=== PATIENT | female | born 1970 | race American Indian/Alaskan Native ===

== ENCOUNTER 2016-09-28 21:21 | Emergency (ER) | payer OTHER ==
[~2016-09-28] VITALS: Ht 167.6 cm; Wt 52.2 kg
[~2016-09-28 21:21] MED LIST: ADDERALL XR 2020 MG PO; CEPHALEXIN500 MG PO; DOXYCYCLINE HY100 MG PO; HYDROXYZINE PAM25 MG PO; MELOXICAM15 MG PO; NORCO 5-325 TA1 EACH PO; PROGESTERONE100 MG PO; TIZANIDINE HCL4 MG PO; TRAMADOL HCL50 MG PO
[2016-09-28] MEDS ORDERED: ULTRAM50 MG PO (21:32)
[2016-09-28] MEDS ORDERED: TRAMADOL HCL50 MG PO (22:34)
== END 2016-09-28 22:45 | disposition home or self-care (01) ==
LOC: ED 21:21
DX: S30.0XXA Contusion of lower back and pelvis, initial encounter (principal); I10 Essential (primary) hypertension; F17.200 Nicotine dependence, unspecified, uncomplicated; Z98.51 Tubal ligation status; Z88.8 Allergy status to other drugs, medicaments and biological substances; Z79.899 Other long term (current) drug therapy; W18.30XA Fall on same level, unspecified, initial encounter
CPT/HCPCS: 71020; 72100; 73080; 99283

== ENCOUNTER 2016-10-15 10:21 | Emergency (ER) | payer OTHER ==
[~2016-10-15] VITALS: Ht 167.6 cm; Wt 52.2 kg
[~2016-10-15 10:21] MED LIST changes: +ULTRAM50 MG PO
[2016-10-15] MEDS ORDERED: CYCLOBENZAPRINE10 MG PO (12:13)
[2016-10-15] MEDS ORDERED: TYLENOL325 MG PO (12:13)
== END 2016-10-15 12:25 | disposition home or self-care (01) ==
LOC: ED 10:21
DX: K62.5 Hemorrhage of anus and rectum (principal); M54.5 Low back pain; R31.9 Hematuria, unspecified; I10 Essential (primary) hypertension; F17.200 Nicotine dependence, unspecified, uncomplicated; Z98.51 Tubal ligation status; Z88.6 Allergy status to analgesic agent; Z79.899 Other long term (current) drug therapy
CPT/HCPCS: 81001; 99283

== ENCOUNTER 2016-11-01 06:37 | Emergency (ER) | payer OTHER ==
[~2016-11-01] VITALS: Ht 167.6 cm; Wt 52.2 kg
[~2016-11-01 06:37] MED LIST changes: +CYCLOBENZAPRINE10 MG PO; +TYLENOL325 MG PO
[2016-11-01] MEDS ORDERED: ESCITALOPRAM OX10 MG PO (06:49)
== END 2016-11-01 08:48 | disposition home or self-care (01) ==
LOC: ED 06:37
DX: M25.562 Pain in left knee (principal); I10 Essential (primary) hypertension; F17.200 Nicotine dependence, unspecified, uncomplicated; Z98.51 Tubal ligation status; Z79.899 Other long term (current) drug therapy
CPT/HCPCS: 73502; 73560; 99283

== ENCOUNTER 2017-06-18 08:25 | Day surgery (SDC) | payer OTHER ==
[~2017-06-18] VITALS: Ht 165.1 cm; Wt 58.1 kg
[~2017-06-18 08:25] MED LIST changes: +ESCITALOPRAM OX10 MG PO
[2017-06-18] MEDS ORDERED: ULTRAM50 MG PO (08:42)
[2017-06-18] MEDS ORDERED: VENLAFAXINE H37.5 MG PO (08:42)
[2017-06-18] MEDS ORDERED: PREMARIN0.625 MG PO (08:43)
--- NOTE | 2017-06-18 11:15 | NUR ---
06/18/17 Isabella5 Anastasiya Bethea 1107-PATIENT ARRIVED TO PACU ON 6L MASK O2 SAT 100% PATIENT REACTIVE. RR EVEN. RIGHT ARM IN IMMOBILIZER ICE APPLIED. 1113-PATIENT AROUSING TO VERBAL STIMULI ORIENTED TO PACU. WHEN ASKED IF COMFORTABLE. STATES YES.
--- NOTE | 2017-06-18 12:24 | NUR ---
PUDDING, ICED WATER AND COFFEE GIVEN. PT'S SPOUSE @ BS. PT SITTING UP IN BED EATING PUDDING AND TOLERATING THAT WELL.
[2017-06-18] MEDS ORDERED: PERCOCET 10-321 EACH PO (12:49)
--- NOTE | 2017-06-18 13:24 | NUR ---
MORE ICED WATER AND COFFEE GIVEN. PATIENT IS ASLEEP (EYES CLOSED AND RR EVEN AND UNLABORED) WHEN THIS RN ENTERS THE ROOM. WHEN RN TALKS, PATIENT WAKES UP AND WINCES AND REPORTS PAIN "8/10". PAIN RATING IS CLARIFIED W/FACES SCALE AND SHE RATES PAIN 4/10. SPOUSE REMAINS @ THE BS.
--- NOTE | 2017-06-30 07:08 | OR ---
[facility] [address], [place] [address] Signed DATE OF OPERATION: 06/18/2017 SURGEON: Roya Raymundo MD PREOPERATIVE DIAGNOSES: Rotator cuff tear, right shoulder with impingement and AC joint arthritis. POSTOPERATIVE DIAGNOSES: Rotator cuff tear, right shoulder with impingement and AC joint arthritis. PROCEDURE: Right shoulder arthroscopy with rotator cuff repair and subacromial decompression. The AC joint did not appear to be involved enough to warrant debridement. WHAT WAS DONE: The patient was taken to the operating room. After anesthesia was induced and airway secured, the patient was placed in a modified beach chair position, and prepped and draped in a routine sterile fashion. The bony topography was outlined with a skin marking pen and the arthroscope was inserted through the standard posterior portal. Anterior portal was made using a switching stick technique. Diagnostic arthroscopy revealed an unremarkable glenoid, glenoid labrum, biceps insertion, biceps tendon, and humeral head. The subscapularis was unremarkable. The supraspinatus had a full-thickness tear that was not significantly retracted. The infraspinatus and the teres seem unremarkable as well. Through the anterior portal, a probe was introduced. Careful probing did not reveal any additional pathological entities. Through the anterior portal, we did introduce the VAPR electrosurgical device and removed the soft tissue off the apex of the greater tuberosity from once the supraspinatus had a torn. We then created an axillary lateral portal and again through this introduced the VAPR and then the bur to remove the soft tissue over the apex of the greater tuberosity and then gently decorticated the bone. We then created auxiliary superior portal. Through this, we were able to introduce a 5.5 corkscrew. We placed two horizontal mattress sutures through the rotator cuff and then tied them down giving us an excellent repair of the cuff. There was a small anterior bump in the repair, so we placed another #1 FiberWire suture through this anterior portion of the cuff and used another SwiveLock to hold it down. We then converted the entire construct to a double repair by inserting another SwiveLock laterally to augment the sutures previously placed from the cork screw. At this point, we appeared to have an excellent construct. We then reintroduced the VAPR into the subacromial space and did a limited bursectomy. We then used the bur to do a Electronically Signed By: ROYA RAYMUNDO MD 06/30/17 0708 PATIENT NAME: ISABELLE ESPAÑA OPERATIVE REPORT DATE OF : 68 REPORT #: [id number] PHYSICIAN: ROYA RAYMUNDO MD PCP: LUCINDA PATE REPORT IS CONFIDENTIAL AND NOT TO BE RELEASED WITHOUT AUTHORIZATION [facility] [address], [place] [address] Signed subacromial decompression particularly anteriorly and laterally. We then used the VAPR to dissect more medially, but there was a significant fat underneath the AC joint and there were no significant inferior bone spurs on the distal clavicle, so it was left unmolested. The subacromial space was copiously irrigated and drained. The portals were closed and sterile dressings applied. The patient was awakened and taken to the recovery room where she arrived in stable condition. Counts were correct and antibiotic protocols were followed. Roya Raymundo MD [facility]/MODL /[id number] Copies: ~ Electronically Signed By: ROYA RAYMUNDO MD 06/30/17 0708 PATIENT NAME: ISABELLE ESPAÑA OPERATIVE REPORT DATE OF : 68 REPORT #: [id number] PHYSICIAN: ROYA RAYMUNDO MD PCP: LUCINDA PATE REPORT IS CONFIDENTIAL AND NOT TO BE RELEASED WITHOUT AUTHORIZATION
== END 2017-06-18 14:05 | disposition home or self-care (01) ==
LOC: DS 08:25 → OPS 08:25
PROVIDERS: Orthopaedic Surgery
PROC: 0LQ14ZZ Repair Right Shoulder Tendon, Percutaneous Endoscopic Approach (ICD-10-PCS; principal; 2017-06-18 09:30)
PROC: 0RNJ4ZZ Release Right Shoulder Joint, Percutaneous Endoscopic Approach (ICD-10-PCS; 2017-06-18 09:30)
DX: M75.121 Complete rotator cuff tear or rupture of right shoulder, not specified as traumatic (principal); M25.811 Other specified joint disorders, right shoulder; M19.011 Primary osteoarthritis, right shoulder; F32.9 Major depressive disorder, single episode, unspecified; F90.9 Attention-deficit hyperactivity disorder, unspecified type; Z79.899 Other long term (current) drug therapy
CPT/HCPCS: 01630; 64415; 76942; C1713; J0690; J1100; J1170; J1885; J2250; J2270; J2370; J2405; J2704; J2765; J2795; J3010; J7120